=== PATIENT | female | born 1980 | race American Indian/Alaskan Native ===

== ENCOUNTER 2016-08-20 15:17 | Emergency (ER) | payer MEDICAID ==
--- NOTE | 2016-08-20 22:37 | Emergency Department Report ---
Entered by NETTIE HOYOS, acting as scribe for TONIE SHANE PA. - General Chief Complaint: Upper Respiratory Infection Stated Complaint: COUGH/HEADACHE/SOB/ASTHMA Time Seen by Provider: 08/20/16 19:48 Source: patient Mode of arrival: Ambulatory Limitations: No Limitations - History of Present Illness Initial Comments: 35 year old female with PMHx asthma presents to the ED for evaluation of productive cough for several weeks that worsened 3 days ago. Patient also reports chest tightness, wheezing, shortness of breath, sinus congestion, and headache. She reports mild relief of symptoms with albuterol nebulizer treatments x 2 today. Patient is currently taking steroids PO. She states she was seen by PCP after initial symptom onset; PCP prescribed albuterol nebulizer , steroids PO x 2 rounds, and changed albuterol pump. Patient sates she was not given steroids IM, antibiotics or had a chest x-ray performed. MD Complaint: cough (prodcutive), nasal congestion -: week(s) Consistency: constant Improves With: other (albuterol nebulizer, mildly) Context: other (Hx asthma) Associated Symptoms: headache, nasal congestion, cough, shortness of breath. denies: fever, chills, sore throat, chest pain, abdominal pain, nausea, vomiting , diarrhea, rash, ear pain Treatments Prior to Arrival: other (Albuterol pump. Albuterol nebulizer treatement x 2 today. Steroid PO x 2 rounds. ) - Related Data Home Medications Medication Instructions Recorded Confirmed Last Taken ALBUTEROL Inhaler [Proair] 2 puff IH QID PRN 04/15/16 04/15/16 04/14/16 14:00 ALBUTEROL NEB's [Proventil] 2.5 mg IH TID PRN 04/15/16 04/15/16 04/13/16 14:00 PARoxetine [Paxil] 10 mg PO DAILY 04/15/16 04/15/16 Unknown Previous Rx's Medication Instructions Recorded Last Taken Type Azithromycin [Zithromax Z-AXEL] 250 mg PO DAILY #6 tablet 08/20/16 Unknown Rx Brompheniramine/Pseudoephed/Dm 5 ml PO Q4-6H PRN #100 syrup 08/20/16 Unknown Rx [Bromfed Dm Cough Syrup] Fluticasone [Flonase] 1 spray NS QDAY PRN #1 bottle 08/20/16 Unknown Rx Loratadine 10 mg PO DAILY #30 tablet 08/20/16 Unknown Rx Allergies Allergy/AdvReac Type Severity Reaction Status Date / Time NSAIDS (Non-Steroidal AdvReac Swelling Verified 08/20/16 16:28 Anti-Inflamma ED Review of Systems Comment: All other systems reviewed and negative Constitutional: denies: chills, fever ENT: congestion. denies: ear pain, throat pain Respiratory: cough, shortness of breath, wheezing Cardiovascular: denies: chest pain Gastrointestinal: denies: abdominal pain, nausea, vomiting, diarrhea Skin: denies: rash Neurological: headache ED Past Medical Hx - Past Medical History Hx Headaches / Migraines: Yes Hx Psychiatric Treatment: Yes (ANXIETY) Hx Asthma: Yes - Surgical History Past Surgical History?: No - Social History Smoking Status: Never Smoker Substance Use Type: None - Medications Home Medications: Home Medications Medication Instructions Recorded Confirmed Last Taken Type ALBUTEROL Inhaler [Proair] 2 puff IH QID PRN 04/15/16 04/15/16 04/14/16 14:00 History ALBUTEROL NEB's [Proventil] 2.5 mg IH TID PRN 04/15/16 04/15/16 04/13/16 14:00 History PARoxetine [Paxil] 10 mg PO DAILY 04/15/16 04/15/16 Unknown History Azithromycin [Zithromax Z-AXEL] 250 mg PO DAILY #6 tablet 08/20/16 Unknown Rx Brompheniramine/Pseudoephed/Dm 5 ml PO Q4-6H PRN #100 syrup 08/20/16 Unknown Rx [Bromfed Dm Cough Syrup] Fluticasone [Flonase] 1 spray NS QDAY PRN #1 bottle 08/20/16 Unknown Rx Loratadine 10 mg PO DAILY #30 tablet 08/20/16 Unknown Rx ED Physical Exam - General Limitations: No Limitations General appearance: alert, in no apparent distress - Head Head exam: Present: atraumatic, normocephalic. Absent: other (sinus tenderness) - Eye Eye exam: Present: PERRL, EOMI - ENT ENT exam: Present: TM's normal bilaterally, other (Nares with bilateral mucousal membrane edema.) - Expanded ENT Exam Expanded Throat exam: Positive: other (clear post nasal drip). Negative: tonsillar erythema, tonsillomegaly, tonsillar exudate - Neck Neck exam: Present: normal inspection, lymphadenopathy (submandibular ) - Respiratory Respiratory exam: Present: normal lung sounds bilaterally. Absent: respiratory distress, wheezes, rales, rhonchi - Cardiovascular Cardiovascular Exam: Present: regular rate, normal rhythm, normal heart sounds. Absent: systolic murmur, diastolic murmur, rubs, gallop - Neurological Exam Neurological exam: Present: alert, oriented X3 - Psychiatric Psychiatric exam: Present: normal affect, normal mood - Skin Skin exam: Present: warm, dry, intact. Absent: rash ED Course Vital Signs 08/20/16 16:25 Temperature 98.3 F Pulse Rate 98 H Respiratory 19 Rate Blood Pressure 128/79 O2 Sat by Pulse 98 Oximetry - Reevaluation(s) Reevaluation #1: 08/20/16 22:36 Medicated with solu medrol IM ED Medical Decision Making - Radiology Data Radiology results: image reviewed interpreted by me: No infiltrates seen - Medical Decision Making Discussed results with patient; will send home with RX for loratadine and flonase for her allergies, bromfed dm for her nasal congestion and cough and azithromycin since her sxs have persisted for over 2 weeks; told her to drink plenty of fluids, tylenol for fevers or aches and follow up with PCP if sxs don' t improve, she verbalized understanding ED Disposition Clinical Impression: Acute bronchitis Qualifiers: Bronchitis organism: unspecified organism Qualified Code(s): J20.9 - Acute bronchitis, unspecified Asthma Qualifiers: Asthma severity: mild persistent Asthma complication type: uncomplicated Qualified Code(s): J45.30 - Mild persistent asthma, uncomplicated Disposition: DISCHARGED TO HOME OR SELFCARE Is pt being admited?: No Does the pt Need Aspirin: No Condition: Stable Instructions: Acute Bronchitis (ED), Asthma (ED) Prescriptions: Azithromycin [Zithromax Z-AXEL] 250 mg PO DAILY #6 tablet Brompheniramine/Pseudoephed/Dm [Bromfed Dm Cough Syrup] 5 ml PO Q4-6H PRN #100 syrup PRN Reason: Cough Fluticasone [Flonase] 1 spray NS QDAY PRN #1 bottle PRN Reason: Nasal Congestion Loratadine 10 mg PO DAILY #30 tablet Referrals: SHERMAN PADILLA, [employer] [Primary Care Provider] - 3-5 Days Forms: Work/School Release Form(ED) Time of Disposition: 22:28 Print Language: GUAMANIAN This documentation as recorded by the ROMAIN see REBEKAH,accurately reflects the service I personally performed and the decisions made by me,ACOSTA,ANDREY PENNY.
[2016-08-20 22:43] VITALS: BP 126/80
--- NOTE | 2016-08-21 07:30 | XRay Report ---
Chest 2 views: Compared to 04/15/16. History: Chest tightness. Findings: Normal cardiomediastinal silhouette. Trachea is midline. No consolidation, pneumothorax or pleural effusion. Impression: No acute cardiopulmonary findings.
== END 2016-08-20 22:42 | disposition home or self-care (01) ==
LOC: ED 15:17
DX: J20.9 Acute bronchitis, unspecified (principal); J45.30 Mild persistent asthma, uncomplicated; G43.909 Migraine, unspecified, not intractable, without status migrainosus
CPT/HCPCS: 71020; 96372; 99283; J2930

== ENCOUNTER 2016-09-05 05:14 | Emergency (ER) | payer MEDICAID ==
[2016-09-05 06:14] LABS: Urine Drugs of Abuse Note Disclamer
[2016-09-05 06:20] LABS: Bilirubin,Urine NEG (Negative); Blood,Urine MOD (Negative); Ketones,Urine NEG (Negative); Leukocyte Esterase,Urine NEG (Negative); Nitrite,Urine NEG (Negative); Protein,Urine <15 mg/dL mg/dL (Negative); Urobilinogen,Urine < 2.0 mg/dL (<2.0)
[2016-09-05 06:21] LABS: Basophils % (Auto) 0.6 % (0.0-1.8); Eosinophils % (Auto) 0.8 % (0.0-4.3); Hematocrit 38.6 % (30.3-42.9); Hemoglobin 12.6 gm/dl (10.1-14.3); Mean Corpuscular HGB Conc 33 % (30-34); Mean Corpuscular Hemoglobin 26 pg (28-32); Mean Corpuscular Volume 80 fl (79-97); Platelet Count 277 K/mm3 (140-440); Red Blood Count 4.82 M/mm3 (3.65-5.03); Red Cell Distribution Width 15.8 % (13.2-15.2); White Blood Count 6.6 K/mm3 (4.5-11.0)
--- NOTE | 2016-09-05 06:32 | Emergency Department Report ---
ED General Adult HPI - General Chief complaint: Psych Stated complaint: SUICIDAL Time Seen by Provider: 09/05/16 06:31 Source: patient Mode of arrival: Ambulatory Limitations: No Limitations - History of Present Illness Initial comments: This is a 35-year-old female. She presents to the ER after suicidal attempt. at /around 4:00 AM, ingested Risperdal, Benadryl, Advil," little blue pill for headache." Patient reports that she took 10 tablets of Advil, 20 tablets of Benadryl, cannot recall the numerical value of the Risperdal, and thinks that she took 12 tablets of the blue pill for headache. She does not know the name of the medication for blue pill for headache. She is feeling suicidal. Symptoms are constant. Experiencing, some auditory hallucinations. -: Gradual Severity scale (0 -10): 3 Consistency: constant Improves with: none Worsens with: none - Related Data Home Medications Medication Instructions Recorded Confirmed Last Taken ALBUTEROL Inhaler [Proair] 2 puff IH QID PRN 04/15/16 09/05/16 04/14/16 14:00 PARoxetine [Paxil] 40 mg PO DAILY 04/15/16 09/05/16 1 Day Ago Albuterol 0.63% NEBS 0.83 mg IH BID 09/05/16 09/05/16 Unknown Previous Rx's Medication Instructions Recorded Last Taken Type Loratadine 10 mg PO DAILY #30 tablet 08/20/16 Unknown Rx Allergies Allergy/AdvReac Type Severity Reaction Status Date / Time NSAIDS (Non-Steroidal AdvReac Swelling Verified 08/20/16 16:28 Anti-Inflamma ED Review of Systems ROS: Stated complaint: SUICIDAL Other details as noted in HPI Constitutional: malaise. denies: fever Eyes: denies: eye discharge ENT: denies: epistaxis Respiratory: denies: cough Cardiovascular: denies: chest pain Gastrointestinal: denies: vomiting Genitourinary: denies: dysuria Musculoskeletal: denies: back pain Skin: denies: lesions Neurological: headache Psychiatric: suicidal thoughts ED Past Medical Hx - Past Medical History Previous Medical History?: Yes Hx Headaches / Migraines: Yes Hx Psychiatric Treatment: Yes (ANXIETY) Hx Asthma: Yes - Surgical History Past Surgical History?: No - Social History Smoking Status: Never Smoker Substance Use Type: None - Medications Home Medications: Home Medications Medication Instructions Recorded Confirmed Last Taken Type ALBUTEROL Inhaler [Proair] 2 puff IH QID PRN 04/15/16 09/05/16 04/14/16 14:00 History PARoxetine [Paxil] 40 mg PO DAILY 04/15/16 09/05/16 1 Day Ago History Loratadine 10 mg PO DAILY #30 tablet 08/20/16 09/05/16 Unknown Rx Albuterol 0.63% NEBS 0.83 mg IH BID 09/05/16 09/05/16 Unknown History ED Physical Exam - General Limitations: No Limitations General appearance: alert, in no apparent distress - Head Head exam: Present: atraumatic, normocephalic - Eye Eye exam: Present: normal appearance, EOMI. Absent: nystagmus - ENT ENT exam: Present: normal exam, normal orophraynx, mucous membranes moist, normal external ear exam - Neck Neck exam: Present: normal inspection, full ROM. Absent: tenderness, meningismus - Respiratory Respiratory exam: Present: normal lung sounds bilaterally. Absent: respiratory distress, wheezes, rales, rhonchi, stridor, chest wall tenderness, accessory muscle use, decreased breath sounds, prolonged expiratory - Cardiovascular Cardiovascular Exam: Present: normal rhythm, tachycardia, normal heart sounds. Absent: systolic murmur, diastolic murmur, rubs, gallop - GI/Abdominal GI/Abdominal exam: Present: soft, normal bowel sounds. Absent: distended, tenderness, guarding, rebound, rigid, pulsatile mass - Extremities Exam Extremities exam: Present: normal inspection, full ROM, normal capillary refill. Absent: tenderness, pedal edema, joint swelling, calf tenderness - Back Exam Back exam: Present: normal inspection, full ROM. Absent: tenderness, CVA tenderness (R), CVA tenderness (L), muscle spasm, paraspinal tenderness, vertebral tenderness - Neurological Exam Neurological exam: Present: alert, oriented X3, other (Extraocular movements intact. Tongue midline. No facial droop. Facial sensation intact to light touch in the V1, V2, V3 distribution bilaterally. 5 and 5 strength in 4 extremities.. Sensation is intact to light touch in 4 extremities.). Absent: motor sensory deficit - Psychiatric Psychiatric exam: Present: anxious, suicidal ideation - Skin Skin exam: Present: warm, dry, intact, normal color. Absent: rash ED Course Vital Signs 09/05/16 09/05/16 09/05/16 05:42 07:44 08:35 Temperature 99 F 98.1 F Pulse Rate 125 H 125 H Respiratory 20 14 14 Rate Blood Pressure Blood Pressure 141/98 [Left] Blood Pressure 130/87 [Right] O2 Sat by Pulse 99 99 99 Oximetry 09/05/16 09/05/16 09/05/16 09:29 09:30 09:40 Temperature Pulse Rate 118 H 114 H 109 H Respiratory 13 12 11 L Rate Blood Pressure 129/80 129/80 Blood Pressure [Left] Blood Pressure [Right] O2 Sat by Pulse Oximetry 09/05/16 09/05/16 09/05/16 09:50 10:00 10:14 Temperature Pulse Rate 109 H 113 H Respiratory 17 17 18 Rate Blood Pressure 109/73 129/80 Blood Pressure [Left] Blood Pressure [Right] O2 Sat by Pulse 99 Oximetry 09/05/16 09/05/16 09/05/16 10:23 10:30 10:40 Temperature Pulse Rate 106 H 97 H 96 H Respiratory 12 14 Rate Blood Pressure 86/64 114/60 114/60 Blood Pressure [Left] Blood Pressure [Right] O2 Sat by Pulse Oximetry 09/05/16 09/05/16 09/05/16 10:50 11:00 11:10 Temperature Pulse Rate 95 H 97 H 94 H Respiratory 16 18 15 Rate Blood Pressure 109/73 114/66 114/66 Blood Pressure [Left] Blood Pressure [Right] O2 Sat by Pulse Oximetry 09/05/16 09/05/16 09/05/16 11:19 11:20 11:30 Temperature Pulse Rate 96 H 95 H 96 H Respiratory 14 13 16 Rate Blood Pressure 125/67 125/67 110/73 Blood Pressure [Left] Blood Pressure [Right] O2 Sat by Pulse Oximetry 09/05/16 09/05/16 09/05/16 11:31 11:40 11:50 Temperature Pulse Rate 95 H 95 H 109 H Respiratory 15 15 19 Rate Blood Pressure 110/73 110/73 110/73 Blood Pressure [Left] Blood Pressure [Right] O2 Sat by Pulse Oximetry 09/05/16 09/05/16 09/05/16 11:55 11:56 12:41 Temperature Pulse Rate 99 H 99 H Respiratory 15 18 17 Rate Blood Pressure 110/73 110/73 Blood Pressure [Left] Blood Pressure [Right] O2 Sat by Pulse 99 Oximetry 09/05/16 09/05/16 09/05/16 12:42 12:44 12:46 Temperature Pulse Rate 105 H 102 H 101 H Respiratory 18 14 15 Rate Blood Pressure 118/72 118/72 118/72 Blood Pressure [Left] Blood Pressure [Right] O2 Sat by Pulse 99 96 98 Oximetry 09/05/16 09/05/16 09/05/16 12:48 12:50 12:52 Temperature Pulse Rate 103 H 102 H 102 H Respiratory 16 14 17 Rate Blood Pressure 118/72 118/72 118/72 Blood Pressure [Left] Blood Pressure [Right] O2 Sat by Pulse 97 97 98 Oximetry 09/05/16 09/05/16 09/05/16 12:54 12:56 12:58 Temperature Pulse Rate 104 H 105 H 104 H Respiratory 17 18 22 Rate Blood Pressure 118/72 118/72 118/72 Blood Pressure [Left] Blood Pressure [Right] O2 Sat by Pulse 98 98 97 Oximetry 09/05/16 09/05/16 09/05/16 13:00 13:02 13:04 Temperature Pulse Rate 106 H 103 H 101 H Respiratory 18 15 16 Rate Blood Pressure 118/72 118/72 118/72 Blood Pressure [Left] Blood Pressure [Right] O2 Sat by Pulse 97 97 97 Oximetry 09/05/16 09/05/16 09/05/16 13:06 13:08 13:34 Temperature Pulse Rate 101 H 102 H 94 H Respiratory 17 17 11 L Rate Blood Pressure 118/72 118/72 109/63 Blood Pressure [Left] Blood Pressure [Right] O2 Sat by Pulse 97 98 100 Oximetry 09/05/16 09/05/16 09/05/16 13:36 13:38 13:40 Temperature Pulse Rate 95 H 91 H 94 H Respiratory 10 L 14 14 Rate Blood Pressure 109/63 109/63 109/63 Blood Pressure [Left] Blood Pressure [Right] O2 Sat by Pulse 98 100 99 Oximetry 09/05/16 09/05/16 09/05/16 13:42 13:44 13:46 Temperature Pulse Rate 94 H 95 H 94 H Respiratory 15 15 18 Rate Blood Pressure 109/63 109/63 109/63 Blood Pressure [Left] Blood Pressure [Right] O2 Sat by Pulse 100 99 99 Oximetry 04/0709/05/16 09/05/16 13:48 13:50 13:52 Temperature Pulse Rate 95 H 96 H 95 H Respiratory 16 20 12 Rate Blood Pressure 109/63 109/63 109/63 Blood Pressure [Left] Blood Pressure [Right] O2 Sat by Pulse 97 99 98 Oximetry 09/05/16 09/05/16 09/05/16 13:54 13:56 13:58 Temperature Pulse Rate 95 H 93 H 92 H Respiratory 16 17 16 Rate Blood Pressure 109/63 109/63 109/63 Blood Pressure [Left] Blood Pressure [Right] O2 Sat by Pulse 99 99 100 Oximetry 09/05/16 09/05/16 09/05/16 14:00 14:02 14:04 Temperature Pulse Rate 90 93 H 92 H Respiratory 15 17 18 Rate Blood Pressure 118/63 118/63 118/63 Blood Pressure [Left] Blood Pressure [Right] O2 Sat by Pulse 99 99 99 Oximetry 09/05/16 09/05/16 09/05/16 14:06 14:08 14:10 Temperature Pulse Rate 90 90 91 H Respiratory 13 16 16 Rate Blood Pressure 118/63 118/63 118/63 Blood Pressure [Left] Blood Pressure [Right] O2 Sat by Pulse 100 99 99 Oximetry 09/05/16 09/05/16 09/05/16 14:12 14:14 14:16 Temperature Pulse Rate 91 H 91 H 90 Respiratory 16 15 15 Rate Blood Pressure 118/63 118/63 118/63 Blood Pressure [Left] Blood Pressure [Right] O2 Sat by Pulse 99 99 99 Oximetry 09/05/16 09/05/16 09/05/16 14:18 14:20 14:22 Temperature Pulse Rate 88 92 H 90 Respiratory 15 15 16 Rate Blood Pressure 118/63 118/63 118/63 Blood Pressure [Left] Blood Pressure [Right] O2 Sat by Pulse 99 99 99 Oximetry 09/05/16 14:24 Temperature Pulse Rate 86 Respiratory 14 Rate Blood Pressure 118/63 Blood Pressure [Left] Blood Pressure [Right] O2 Sat by Pulse 99 Oximetry - Reevaluation(s) Reevaluation #1: 09/05/16 08:33 Differential diagnosis: Depression with psychosis, mood disorder, suicidal attempt, polypharmacy, intentional overdose Assessment and plan: 35-year-old male with suicide attempt from polypharmacy, patient presented to the ER more than 60 minutes after ingestion, therefore not a charcoal candidate. She is alert and oriented 3, with a GCS of 15, and an NIH score of 0. Laboratory studies reviewed, unremarkable, patient found to be tachycardic, IV fluids ordered. Serum toxicology studies have been ordered. The patient is placed on a 1013. The nurses going to contact the pharmacy at [facility] [address] and will attempt to reconcile the patient's medications. We will discuss with the [place] [facility] shortly. Reevaluation #2: 09/05/16 09:06 called up [facility] headache medication is fiorecet fiorecet 50 mg/325/40 (20 tabs) 09/05/16 09:26 Reevaluation #3: 09/05/16 11:52 tachycardia resolved . the case is discussed with Jimmy at the [place] [facility]. Recommended timeframe of 6-8 hours of observation. Of note, patient complained of headache.. Patient has a history of migraine headaches and frequent headaches. She has a GCS of 15, with an NIH score of 0. She reports that this headache is similar to her prior headache episodes. I highly doubt acute intracranial disease. However she did endorse some nonspecific hallucinations. Therefore we will obtain a CT scan of the head to exclude gross structural intracranial abnormalities. 09/05/16 11:52 Reevaluation #4: 09/05/16 14:12 CT scan of the brain is negative. As a point of clarification, the Poison Control Center initially recommended a 23 hour period of observation because of the unknown tablet. Now that the tablet has been classified as fiorecet, Poison Control Center amends the recommendation to 8 hours of observation. The patient has remained in the ER for a prolonged period of time, she has been observed for about 10 hours postingestion. At this point in time, I see no immediate medical contraindication to psychiatric admission/evaluation/placement. The crisis team is informed. ED Medical Decision Making - Lab Data Result diagrams: 09/05/16 06:06 09/05/16 06:06 Vital Signs 09/05/16 09/05/16 05:42 07:44 Temperature 99 F 98.1 F Pulse Rate 125 H 125 H Respiratory 20 14 Rate Blood Pressure 141/98 [Left] Blood Pressure 130/87 [Right] O2 Sat by Pulse 99 99 Oximetry Lab Results 09/05/16 09/05/1609/05/17 Range/Units 06:06 06:06 06:06 WBC 6.6 (4.5-11.0) K/mm3 RBC 4.82 (3.65-5.03) M/mm3 Hgb 12.6 (10.1-14.3) gm/dl Hct 38.6 (30.3-42.9) % MCV 80 (79-97) fl MCH 26 L (28-32) pg MCHC 33 (30-34) % RDW 15.8 H (13.2-15.2) % Plt Count 277 (140-440) K/mm3 Lymph % (Auto) 20.5 (13.4-35.0) % [place] % (Auto) 5.3 (0.0-7.3) % Eos % (Auto) 0.8 (0.0-4.3) % Baso % (Auto) 0.6 (0.0-1.8) % Lymph # 1.4 (1.2-5.4) K/mm3 [place] # 0.4 (0.0-0.8) K/mm3 Eos # 0.1 (0.0-0.4) K/mm3 Baso # 0.0 (0.0-0.1) K/mm3 Seg Neutrophils % 72.8 H (40.0-70.0) % Seg Neutrophils # 4.8 (1.8-7.7) K/mm3 Sodium 140 (137-145) mmol/L Potassium 3.4 L (3.6-5.0) mmol/L Chloride 99.9 (98-107) mmol/L Carbon Dioxide 24 (22-30) mmol/L Anion Gap 20 mmol/L BUN 7 (7-17) mg/dL Creatinine 0.5 L (0.7-1.2) mg/dL Estimated GFR > 60 ml/min BUN/Creatinine Ratio 14.00 % Glucose 102 H (65-100) mg/dL Calcium 9.1 (8.4-10.2) mg/dL Magnesium (1.7-2.3) mg/dL Urine Color (Yellow) Urine Turbidity (Clear) Urine pH (5.0-7.0) Ur Specific [place] (1.003-1.030) Urine Protein (Negative) mg/dL Urine Glucose (UA) (Negative) mg/dL Urine Ketones (Negative) mg/dL Urine Blood (Negative) Urine Nitrite (Negative) Urine Bilirubin (Negative) Urine Urobilinogen (<2.0) mg/dL Ur Leukocyte Esterase (Negative) Urine WBC (Auto) (0.0-6.0) /HPF Urine RBC (Auto) (0.0-6.0) /HPF U Epithel Cells (Auto) (0-13.0) /HPF Urine HCG, Qual (Negative) Salicylates (2.8-20.0) mg/dL Urine Opiates Screen Urine Methadone Screen Ur Phencyclidine Scrn Ur Amphetamines Screen U Benzodiazepines Scrn Urine Cocaine Screen U Marijuana (THC) Screen Plasma/Serum Alcohol < 0.01 (0-0.07) gm% 09/05/16 09/05/16 09/05/16 Range/Units 06:06 06:06 06:09 WBC (4.5-11.0) K/mm3 RBC (3.65-5.03) M/mm3 Hgb (10.1-14.3) gm/dl Hct (30.3-42.9) % MCV (79-97) fl MCH (28-32) pg MCHC (30-34) % RDW (13.2-15.2) % Plt Count (140-440) K/mm3 Lymph % (Auto) (13.4-35.0) % [place] % (Auto) (0.0-7.3) % Eos % (Auto) (0.0-4.3) % Baso % (Auto) (0.0-1.8) % Lymph # (1.2-5.4) K/mm3 [place] # (0.0-0.8) K/mm3 Eos # (0.0-0.4) K/mm3 Baso # (0.0-0.1) K/mm3 Seg Neutrophils % (40.0-70.0) % Seg Neutrophils # (1.8-7.7) K/mm3 Sodium (137-145) mmol/L Potassium (3.6-5.0) mmol/L Chloride (98-107) mmol/L Carbon Dioxide (22-30) mmol/L Anion Gap mmol/L BUN (7-17) mg/dL Creatinine (0.7-1.2) mg/dL Estimated GFR ml/min BUN/Creatinine Ratio % Glucose (65-100) mg/dL Calcium (8.4-10.2) mg/dL Magnesium 2.1 (1.7-2.3) mg/dL Urine Color Colorless (Yellow) Urine Turbidity Clear (Clear) Urine pH 7.0 (5.0-7.0) Ur Specific [place] 1.002 L (1.003-1.030) Urine Protein <15 mg/dl (Negative) mg/dL Urine Glucose (UA) Neg (Negative) mg/dL Urine Ketones Neg (Negative) mg/dL Urine Blood Mod (Negative) Urine Nitrite Neg (Negative) Urine Bilirubin Neg (Negative) Urine Urobilinogen < 2.0 (<2.0) mg/dL Ur Leukocyte Esterase Neg (Negative) Urine WBC (Auto) 0.0 (0.0-6.0) /HPF Urine RBC (Auto) 1.0 (0.0-6.0) /HPF U Epithel Cells (Auto) 1.0 (0-13.0) /HPF Urine HCG, Qual Negative (Negative) Salicylates < 0.3 L (2.8-20.0) mg/dL Urine Opiates Screen Urine Methadone Screen Ur Phencyclidine Scrn Ur Amphetamines Screen U Benzodiazepines Scrn Urine Cocaine Screen U Marijuana (THC) Screen Plasma/Serum Alcohol (0-0.07) gm% 09/05/16 Range/Units 06:09 WBC (4.5-11.0) K/mm3 RBC (3.65-5.03) M/mm3 Hgb (10.1-14.3) gm/dl Hct (30.3-42.9) % MCV (79-97) fl MCH (28-32) pg MCHC (30-34) % RDW (13.2-15.2) % Plt Count (140-440) K/mm3 Lymph % (Auto) (13.4-35.0) % [place] % (Auto) (0.0-7.3) % Eos % (Auto) (0.0-4.3) % Baso % (Auto) (0.0-1.8) % Lymph # (1.2-5.4) K/mm3 [place] # (0.0-0.8) K/mm3 Eos # (0.0-0.4) K/mm3 Baso # (0.0-0.1) K/mm3 Seg Neutrophils % (40.0-70.0) % Seg Neutrophils # (1.8-7.7) K/mm3 Sodium (137-145) mmol/L Potassium (3.6-5.0) mmol/L Chloride (98-107) mmol/L Carbon Dioxide (22-30) mmol/L Anion Gap mmol/L BUN (7-17) mg/dL Creatinine (0.7-1.2) mg/dL Estimated GFR ml/min BUN/Creatinine Ratio % Glucose (65-100) mg/dL Calcium (8.4-10.2) mg/dL Magnesium (1.7-2.3) mg/dL Urine Color (Yellow) Urine Turbidity (Clear) Urine pH (5.0-7.0) Ur Specific [place] (1.003-1.030) Urine Protein (Negative) mg/dL Urine Glucose (UA) (Negative) mg/dL Urine Ketones (Negative) mg/dL Urine Blood (Negative) Urine Nitrite (Negative) Urine Bilirubin (Negative) Urine Urobilinogen (<2.0) mg/dL Ur Leukocyte Esterase (Negative) Urine WBC (Auto) (0.0-6.0) /HPF Urine RBC (Auto) (0.0-6.0) /HPF U Epithel Cells (Auto) (0-13.0) /HPF Urine HCG, Qual (Negative) Salicylates (2.8-20.0) mg/dL Urine Opiates Screen Presumptive negative Urine Methadone Screen Presumptive negative Ur Phencyclidine Scrn Presumptive negative Ur Amphetamines Screen Presumptive negative U Benzodiazepines Scrn Presumptive negative Urine Cocaine Screen Presumptive negative U Marijuana (THC) Screen Presumptive negative Plasma/Serum Alcohol (0-0.07) gm% - EKG Data -: EKG Interpreted by Or EKG shows normal: sinus rhythm Rate: tachycardia - EKG Data 09/05/16 08:35 sinus tachycardia, 119 bpm, QTC 478 ms, QRS 66 ms, not morphologically consistent with STEMI, appears unchanged compared to prior EKG from April 2016. - Radiology Data Radiology results: report reviewed, image reviewed Noncontrast CT scan of the brain is negative Critical care attestation.: If time is entered above; I have spent that time in minutes in the direct care of this critically ill patient, excluding procedure time. ED Disposition Clinical Impression: Overdose, Mood disorder Disposition: DC/TX PSY HOSP/PSY UNIT Is pt being admited?: No Does the pt Need Aspirin: No Condition: Good Referrals: PRIMARY CARE, [Primary Care Provider] - 3-5 Days
[2016-09-05 06:36] LABS: Anion Gap 20 mmol/L; Blood Urea Nitrogen 7 mg/dL (7-17); Calcium 9.1 mg/dL (8.4-10.2); Carbon Dioxide 24 mmol/L (22-30); Chloride 99.9 mmol/L (98-107); Glucose 102 mg/dL (65-100); Potassium 3.4 mmol/L (3.6-5.0); Sodium 140 mmol/L (137-145)
[2016-09-05] MEDS ORDERED: ATIVAN IM PRN (06:44)
[2016-09-05] MEDS ORDERED: NACL 0.9% 1000 ML 2,000 ML IV ONE (06:44)
[2016-09-05 09:00] LABS: INR 1.02 (0.87-1.13)
[2016-09-05 09:21] LABS: Alanine Aminotransferase 27 units/L (7-56); Albumin 4.4 g/dL (3.9-5); Alkaline Phosphatase 57 units/L (35-129)
[2016-09-05] MEDS ORDERED: NACL 0.9% 1000 ML 2,000 ML ONE (09:59)
[2016-09-05] MEDS ORDERED: VISTARIL ONE (10:08)
[2016-09-05] MEDS ORDERED: VISTARIL PO ONE (10:41)
[2016-09-05 10:59] LABS: Albumin/Globulin Ratio 1.5 %; Bilirubin,Total 0.3 mg/dL (0.1-1.2); Total Protein 7.4 g/dL (6.3-8.2)
[2016-09-05 11:08] LABS: Bilirubin,Direct < 0.2 mg/dL (0-0.2)
--- NOTE | 2016-09-05 13:51 | Cat Scan Report ---
CT HEAD WITHOUT CONTRAST: HISTORY: Headache. Serial contiguous axial images were obtained through the cranium. Intravenous contrast material was not administered. The ventricles are normal in size and appearance. There is no mass effect or midline shift. No areas of abnormally increased or decreased attenuation are seen. No mass lesion is seen. The mastoid air cells and visualized portions of the sinuses are normal. IMPRESSION: Cranial CT scan within normal limits.
[2016-09-05 19:20] VITALS: BP 132/91
== END 2016-09-05 20:47 ==
LOC: EEVIPCON 05:14 → ED 05:14
DX: T39.312A Poisoning by propionic acid derivatives, intentional self-harm, initial encounter (principal); T45.0X2A Poisoning by antiallergic and antiemetic drugs, intentional self-harm, initial encounter; F39 Unspecified mood [affective] disorder; G43.909 Migraine, unspecified, not intractable, without status migrainosus; F41.9 Anxiety disorder, unspecified; J45.909 Unspecified asthma, uncomplicated; Z88.8 Allergy status to other drugs, medicaments and biological substances; Y92.89 Other specified places as the place of occurrence of the external cause
CPT/HCPCS: 36415; 70450; 80048; 80074; 80307; 81001; 81025; 83735; 84443; 85025; 85610; 93005; 93010; 96360; 96361; 99285; G0480; J2060; J7030; 80320; Q0177

== ENCOUNTER 2016-12-15 13:57 | Emergency (ER) | payer MEDICAID ==
--- NOTE | 2016-12-15 14:45 | Emergency Department Report ---
Chief Complaint: Pain General Stated Complaint: BODY PAIN Time Seen by Provider: 12/15/16 14:41 - HPI History of Present Illness: PT c/o headache, neck pain, chest and leg swelling x 3 days. PT states her asthma was acting up yesterday PT states she has been harassed and very stressed. - ROS Review of Systems: + chest pain + swelling + stress - Exam Physical Exam: PT is alert and appropriate in triage. steady gait no focal weakness MSE screening note: Focused history and physical exam performed. Due to findings the following was ordered: labs, xr, ekg ED Disposition for MSE Condition: Stable
[2016-12-15 14:46] VITALS: BP 122/83
[2016-12-15 15:37] LABS: Basophils % (Auto) 0.9 % (0.0-1.8); Eosinophils % (Auto) 0.6 % (0.0-4.3); Hemoglobin 12.8 gm/dl (10.1-14.3); Mean Corpuscular HGB Conc 32 % (30-34); Mean Corpuscular Volume 78 fl (79-97); Platelet Count 286 K/mm3 (140-440); Red Blood Count 5.14 M/mm3 (3.65-5.03); Red Cell Distribution Width 15.9 % (13.2-15.2); White Blood Count 5.7 K/mm3 (4.5-11.0)
[2016-12-15 15:42] LABS: Mean Corpuscular Hemoglobin 25 pg (28-32)
[2016-12-15 16:30] LABS: Alanine Aminotransferase 14 units/L (7-56); Albumin 4.6 g/dL (3.9-5); Albumin/Globulin Ratio 1.2 %; Alkaline Phosphatase 54 units/L (35-129); Anion Gap 20 mmol/L; Blood Urea Nitrogen 6 mg/dL (7-17); Calcium 9.7 mg/dL (8.4-10.2); Carbon Dioxide 21 mmol/L (22-30); Chloride 96.8 mmol/L (98-107); Glucose 99 mg/dL (65-100); Potassium 3.9 mmol/L (3.6-5.0); Sodium 134 mmol/L (137-145); Total Protein 8.5 g/dL (6.3-8.2)
--- NOTE | 2016-12-16 14:46 | ED Elopement Review ---
ED Pt Elopement review - Results review Lab results: Laboratory Tests 12/15/16 12/15/16 12/15/16 15:08 15:08 15:08 WBC 5.7 RBC 5.14 H Hgb 12.8 Hct 40.0 MCV 78 L MCH 25 L MCHC 32 RDW 15.9 H Plt Count 286 Lymph % (Auto) 27.7 Hale % (Auto) 8.2 H Eos % (Auto) 0.6 Baso % (Auto) 0.9 Lymph # 1.6 Hale # 0.5 Eos # 0.0 Baso # 0.0 Seg Neutrophils % 62.6 Seg Neutrophils # 3.5 Sodium 134 L Potassium 3.9 Chloride 96.8 L Carbon Dioxide 21 L Anion Gap 20 BUN 6 L Creatinine 0.5 L Estimated GFR > 60 BUN/Creatinine Ratio 12.00 Glucose 99 Calcium 9.7 Total Bilirubin 0.30 AST 19 ALT 14 Alkaline Phosphatase 54 Troponin T < 0.010 Total Protein 8.5 H Albumin 4.6 Albumin/Globulin Ratio 1.2 HCG, Qual Negative - Call Back decision Pt Call Back Decision: Pt to F/U with PMD
== END 2016-12-15 22:20 | disposition left against medical advice (07) ==
LOC: ED 13:57
DX: R51 Headache (principal); M54.2 Cervicalgia; Z53.21 Procedure and treatment not carried out due to patient leaving prior to being seen by health care provider
CPT/HCPCS: 36415; 80053; 84484; 84703; 85025; 93005; 93010

== ENCOUNTER 2017-02-07 11:34 | Emergency (ER) | payer MEDICAID ==
[2017-02-07 12:16] VITALS: BP 114/82
--- NOTE | 2017-02-07 19:33 | Emergency Department Report ---
Entered by JOSEFINA MURRELL, acting as scribe for ALEXIS SINGLETON NP. - General Chief complaint: Skin Rash Stated complaint: ALLERGIES/SKIN IRRITATION Time Seen by Provider: 02/07/17 14:44 Source: patient Mode of arrival: Ambulatory Limitations: No Limitations - History of Present Illness Initial comments: 36 y/o female with PMHx of allergies, tinea, and eczema, presents to the ED c/o rash to back and upper extremities x 2 weeks. Associated symptoms include itching, burning and nausea but denies fever, chills and vomiting. States she was living in a fdc and she recently moved to a new home. Patient is unsure if she is having an allergic reaction to dust or if something bit her. Symptoms are worse at night. Patient states she normally needs an allergy and steroid shot around this time of year due to allergies. She was seen 2 weeks ago by PCP and was diagnosed with tinea and strep throat but Bactrim did not help. Mild relief with Benadryl. No aggravating factors. Allergic to NSAIDS. MD complaint: rash Onset/Timin -: week(s) Location: back, LUE, RUE Quality: burning Consistency: intermittent Improves with: none Worsens with: none Context: other (patient was living in a fdc and recently moved to a new home ) Associated symptoms: nausea, other (itchign, burning, denies: vomiting) Treatments Prior to Arrival: none - Related Data Home Medications Medication Instructions Recorded Confirmed Last Taken ALBUTEROL Inhaler [Proair] 2 puff IH QID PRN 04/15/16 09/05/16 04/14/16 14:00 PARoxetine [Paxil] 40 mg PO DAILY 04/15/16 09/05/16 1 Day Ago Albuterol 0.63% NEBS 0.83 mg IH BID 09/05/16 09/05/16 Unknown Previous Rx's Medication Instructions Recorded Last Taken Type Loratadine 10 mg PO DAILY #30 tablet 08/20/16 Unknown Rx Permethrin 5% [Acticin 5% CREAM] 1 applicatio TP ONCE #1 tube 02/07/17 Unknown Rx Triamcinolone 0.1% [Kenalog 0.1% 1 applic TP TID 7 Days 02/07/17 Unknown Rx CREAM] hydrOXYzine PAMOATE [Vistaril] 25 mg PO Q6HR PRN #12 capsule 02/07/17 Unknown Rx Allergies Allergy/AdvReac Type Severity Reaction Status Date / Time NSAIDS (Non-Steroidal AdvReac Swelling Verified 12/15/16 14:40 Anti-Inflamma Abscess Boil HPI - HPI Chief Complaint: Skin Rash Stated Complaint: ALLERGIES/SKIN IRRITATION Time Seen by Provider: 02/07/17 14:07 Home Medications: Home Medications Medication Instructions Recorded Confirmed Last Taken ALBUTEROL Inhaler [Proair] 2 puff IH QID PRN 04/15/16 09/05/16 04/14/16 14:00 PARoxetine [Paxil] 40 mg PO DAILY 04/15/16 09/05/16 1 Day Ago Albuterol 0.63% NEBS 0.83 mg IH BID 09/05/16 09/05/16 Unknown Previous Rx's Medication Instructions Recorded Last Taken Type Loratadine 10 mg PO DAILY #30 tablet 08/20/16 Unknown Rx Permethrin 5% [Acticin 5% CREAM] 1 applicatio TP ONCE #1 tube 02/07/17 Unknown Rx Triamcinolone 0.1% [Kenalog 0.1% 1 applic TP TID 7 Days 02/07/17 Unknown Rx CREAM] hydrOXYzine PAMOATE [Vistaril] 25 mg PO Q6HR PRN #12 capsule 02/07/17 Unknown Rx Allergies/Adverse Reactions: Allergies Allergy/AdvReac Type Severity Reaction Status Date / Time NSAIDS (Non-Steroidal AdvReac Swelling Verified 12/15/16 14:40 Anti-Inflamma ED Review of Systems Comment: All other systems reviewed and negative Constitutional: denies: chills, fever Gastrointestinal: nausea. denies: vomiting Skin: rash, other (itching and burning) ED Past Medical Hx - Past Medical History Hx Headaches / Migraines: Yes Hx Psychiatric Treatment: Yes (ANXIETY) Hx Asthma: Yes Additional medical history: allergies - Surgical History Past Surgical History?: No - Social History Smoking Status: Never Smoker Substance Use Type: None - Medications Home Medications: Home Medications Medication Instructions Recorded Confirmed Last Taken Type ALBUTEROL Inhaler [Proair] 2 puff IH QID PRN 04/15/16 09/05/16 04/14/16 14:00 History PARoxetine [Paxil] 40 mg PO DAILY 04/15/16 09/05/16 1 Day Ago History Loratadine 10 mg PO DAILY #30 tablet 08/20/16 09/05/16 Unknown Rx Albuterol 0.63% NEBS 0.83 mg IH BID 09/05/16 09/05/16 Unknown History Permethrin 5% [Acticin 5% CREAM] 1 applicatio TP ONCE #1 tube 02/07/17 Unknown Rx Triamcinolone 0.1% [Kenalog 0.1% 1 applic TP TID 7 Days 02/07/17 Unknown Rx CREAM] hydrOXYzine PAMOATE [Vistaril] 25 mg PO Q6HR PRN #12 capsule 02/07/17 Unknown Rx ED Physical Exam - General Limitations: No Limitations General appearance: alert, in no apparent distress - Head Head exam: Present: atraumatic, normocephalic, normal inspection - Eye Eye exam: Present: normal appearance, PERRL, EOMI. Absent: scleral icterus, conjunctival injection, nystagmus, periorbital swelling, periorbital tenderness Pupils: Present: normal accommodation - ENT ENT exam: Present: normal exam, normal orophraynx, mucous membranes moist, TM's normal bilaterally, normal external ear exam - Neck Neck exam: Present: normal inspection, full ROM. Absent: tenderness, meningismus, lymphadenopathy, thyromegaly - Respiratory Respiratory exam: Present: normal lung sounds bilaterally. Absent: respiratory distress, wheezes, rales, rhonchi, stridor, chest wall tenderness, accessory muscle use, decreased breath sounds, prolonged expiratory - Cardiovascular Cardiovascular Exam: Present: regular rate, normal rhythm, normal heart sounds. Absent: bradycardia, tachycardia, irregular rhythm, systolic murmur, diastolic murmur, rubs, gallop - GI/Abdominal GI/Abdominal exam: Present: soft, normal bowel sounds. Absent: distended, tenderness, guarding, rebound, rigid, diminished bowel sounds - Extremities Exam Extremities exam: Present: normal inspection, full ROM, normal capillary refill. Absent: tenderness, pedal edema, joint swelling, calf tenderness - Back Exam Back exam: Present: normal inspection, full ROM. Absent: tenderness, CVA tenderness (R), CVA tenderness (L), muscle spasm, paraspinal tenderness, vertebral tenderness, rash noted - Neurological Exam Neurological exam: Present: alert, oriented X3 - Psychiatric Psychiatric exam: Present: normal affect, normal mood - Skin Skin exam: Present: warm, dry, rash (hyperpigmented, scally rash to anterior neck ) ED Course Vital Signs 02/07/17 12:12 Temperature 98.2 F Pulse Rate 96 H Respiratory 18 Rate Blood Pressure 114/82 O2 Sat by Pulse 100 Oximetry - Reevaluation(s) Reevaluation #1: 02/07/17 15:27 PT given steroid shot for her itching. PT states this usually helps. PT states she is currently not being treated for eczema. PT offered treatment for scabies due to pt recently being in fdc and having itching and rash. PT refusing treatment and requesting treatment of eczema - Pulse Oximetry Interpretation Digit-Finger Initial Pulse Oximetry Readin Actions Taken: none ED Medical Decision Making - Differential Diagnosis allergic reaction, scabies Critical Care Time: No ED Disposition Clinical Impression: Itching, Rash and nonspecific skin eruption Disposition: TO HOME OR SELFCARE Is pt being admited?: No Does the pt Need Aspirin: No Condition: Stable Instructions: Contact Dermatitis (ED), Scabies (ED), Acute Rash (ED) Additional Instructions: No driving or alcohol after taking Vistaril Do not take Benadryl with Vistaril Follow up with PCP in 3-5 days Prescriptions: hydrOXYzine PAMOATE [Vistaril] 25 mg PO Q6HR PRN #12 capsule PRN Reason: Itching Permethrin 5% [Acticin 5% CREAM] 1 applicatio TP ONCE #1 tube Triamcinolone 0.1% [Kenalog 0.1% CREAM] 1 applic TP TID 7 Days Referrals: PRIMARY CAREMD [Primary Care Provider] - 3-5 Days SOLO RESENDEZ MD [Staff Physician] - 3-5 Days [facility] [Outside] - 3-5 Days Time of Disposition: 15:30 This documentation as recorded by the HANDY see ELIZABETH,accurately reflects the service I personally performed and the decisions made by ,ALEXIS SINGLETON, YOUTH CARE SPECIALIST.
== END 2017-02-07 15:30 | disposition home or self-care (01) ==
LOC: ED 11:34
DX: R21 Rash and other nonspecific skin eruption (principal); L29.8 Other pruritus; J45.909 Unspecified asthma, uncomplicated; F41.9 Anxiety disorder, unspecified; Z88.8 Allergy status to other drugs, medicaments and biological substances
CPT/HCPCS: 96372; 99282; J2930

== ENCOUNTER 2017-03-15 11:38 | Emergency (ER) | payer MEDICAID ==
--- NOTE | 2017-03-15 12:37 | Emergency Department Report ---
- General Chief complaint: Animal Bite Stated complaint: INSECT BITE Time Seen by Provider: 03/15/17 12:13 Source: patient Mode of arrival: Ambulatory Limitations: No Limitations - History of Present Illness Initial comments: 36-year-old female past medical history migraines presents with complaint of possible insect bite to left upper anterior thigh region. Patient states she felt a stinging sensation while at work. Patient noticed a small red patch on the left upper anterior thigh just progressively gotten more red and swollen over the last 3 days. Patient denies fevers or chills denies any other areas on skin with discoloration or erythema. Patient is awake alert and oriented 3 MD complaint: abscess/boil, discoloration (ertyhema left upper thigh) Location: LLE (left upper thigh abscess/cellulitis) Severity: moderate Severity scale (0 -10): 6 Quality: burning, aching Consistency: intermittent Associated symptoms: denies other symptoms - Related Data Home Medications Medication Instructions Recorded Confirmed Last Taken ALBUTEROL Inhaler [Proair] 2 puff IH QID PRN 04/15/16 09/05/16 04/14/16 14:00 PARoxetine [Paxil] 40 mg PO DAILY 04/15/16 09/05/16 1 Day Ago Albuterol 0.63% NEBS 0.83 mg IH BID 09/05/16 09/05/16 Unknown Previous Rx's Medication Instructions Recorded Last Taken Type Loratadine 10 mg PO DAILY #30 tablet 08/20/16 Unknown Rx Permethrin 5% [Acticin 5% CREAM] 1 applicatio TP ONCE #1 tube 02/07/17 Unknown Rx Triamcinolone 0.1% [Kenalog 0.1% 1 applic TP TID 7 Days 02/07/17 Unknown Rx CREAM] hydrOXYzine PAMOATE [Vistaril] 25 mg PO Q6HR PRN #12 capsule 02/07/17 Unknown Rx Acetaminophen [Acetaminophen TAB] 500 mg PO Q6HR PRN #30 tablet 03/15/17 Unknown Rx Cephalexin [Keflex] 500 mg PO BID #14 capsule 03/15/17 Unknown Rx Sulfamethoxazole/Trimethoprim 1 each PO BID #14 tablet 03/15/17 Unknown Rx [Bactrim DS TAB] Allergies Allergy/AdvReac Type Severity Reaction Status Date / Time NSAIDS (Non-Steroidal AdvReac Swelling Verified 12/15/16 14:40 Anti-Inflamma Abscess Boil HPI - HPI Chief Complaint: Animal Bite Stated Complaint: INSECT BITE Time Seen by Provider: 03/15/17 12:13 Home Medications: Home Medications Medication Instructions Recorded Confirmed Last Taken ALBUTEROL Inhaler [Proair] 2 puff IH QID PRN 04/15/16 09/05/16 04/14/16 14:00 PARoxetine [Paxil] 40 mg PO DAILY 04/15/16 09/05/16 1 Day Ago Albuterol 0.63% NEBS 0.83 mg IH BID 09/05/16 09/05/16 Unknown Previous Rx's Medication Instructions Recorded Last Taken Type Loratadine 10 mg PO DAILY #30 tablet 08/20/16 Unknown Rx Permethrin 5% [Acticin 5% CREAM] 1 applicatio TP ONCE #1 tube 02/07/17 Unknown Rx Triamcinolone 0.1% [Kenalog 0.1% 1 applic TP TID 7 Days 02/07/17 Unknown Rx CREAM] hydrOXYzine PAMOATE [Vistaril] 25 mg PO Q6HR PRN #12 capsule 02/07/17 Unknown Rx Acetaminophen [Acetaminophen TAB] 500 mg PO Q6HR PRN #30 tablet 03/15/17 Unknown Rx Cephalexin [Keflex] 500 mg PO BID #14 capsule 03/15/17 Unknown Rx Sulfamethoxazole/Trimethoprim 1 each PO BID #14 tablet 03/15/17 Unknown Rx [Bactrim DS TAB] Allergies/Adverse Reactions: Allergies Allergy/AdvReac Type Severity Reaction Status Date / Time NSAIDS (Non-Steroidal AdvReac Swelling Verified 12/15/16 14:40 Anti-Inflamma ED Review of Systems ROS: Stated complaint: INSECT BITE Other details as noted in HPI Constitutional: denies: chills, fever Eyes: denies: eye pain, eye discharge, vision change ENT: denies: ear pain, throat pain Respiratory: denies: cough, shortness of breath, wheezing Cardiovascular: denies: chest pain, palpitations Endocrine: no symptoms reported Gastrointestinal: denies: abdominal pain, nausea, diarrhea Genitourinary: denies: urgency, dysuria, discharge Musculoskeletal: denies: back pain, joint swelling, arthralgia Skin: denies: rash, lesions Neurological: denies: headache, weakness, paresthesias Psychiatric: denies: anxiety, depression Hematological/Lymphatic: denies: easy bleeding, easy bruising ED Past Medical Hx - Past Medical History Hx Headaches / Migraines: Yes Hx Psychiatric Treatment: Yes (ANXIETY) Hx Asthma: Yes Additional medical history: allergies - Surgical History Past Surgical History?: No - Social History Smoking Status: Never Smoker Substance Use Type: None - Medications Home Medications: Home Medications Medication Instructions Recorded Confirmed Last Taken Type ALBUTEROL Inhaler [Proair] 2 puff IH QID PRN 04/15/16 09/05/16 04/14/16 14:00 History PARoxetine [Paxil] 40 mg PO DAILY 04/15/16 09/05/16 1 Day Ago History Loratadine 10 mg PO DAILY #30 tablet 08/20/16 09/05/16 Unknown Rx Albuterol 0.63% NEBS 0.83 mg IH BID 09/05/16 09/05/16 Unknown History Permethrin 5% [Acticin 5% CREAM] 1 applicatio TP ONCE #1 tube 02/07/17 Unknown Rx Triamcinolone 0.1% [Kenalog 0.1% 1 applic TP TID 7 Days 02/07/17 Unknown Rx CREAM] hydrOXYzine PAMOATE [Vistaril] 25 mg PO Q6HR PRN #12 capsule 02/07/17 Unknown Rx Acetaminophen [Acetaminophen TAB] 500 mg PO Q6HR PRN #30 tablet 03/15/17 Unknown Rx Cephalexin [Keflex] 500 mg PO BID #14 capsule 03/15/17 Unknown Rx Sulfamethoxazole/Trimethoprim 1 each PO BID #14 tablet 03/15/17 Unknown Rx [Bactrim DS TAB] ED Physical Exam - General Limitations: No Limitations General appearance: alert, in no apparent distress - Head Head exam: Present: atraumatic, normocephalic - Eye Eye exam: Present: normal appearance, PERRL, EOMI - ENT ENT exam: Present: mucous membranes moist - Neck Neck exam: Present: normal inspection - Respiratory Respiratory exam: Present: normal lung sounds bilaterally. Absent: respiratory distress - Cardiovascular Cardiovascular Exam: Present: regular rate, normal rhythm. Absent: systolic murmur, diastolic murmur, rubs, gallop - GI/Abdominal GI/Abdominal exam: Present: soft, normal bowel sounds - Extremities Exam Extremities exam: Present: normal inspection - Expanded Lower Extremity Exam Left Hip exam: Present: normal inspection, full ROM Upper Leg exam: Present: tenderness, erythema (circular area of erythema abou 16 cm left anteriro thigh region) Knee exam: Present: normal inspection, full ROM Lower Leg exam: Present: normal inspection, full ROM Ankle exam: Present: normal inspection, full ROM Foot/Toe exam: Present: normal inspection, full ROM Neuro vascular tendon exam: Present: no vascular compromise (distal pulses kelsey to palpation) 1 - area of cellulitis and abscess here - Back Exam Back exam: Present: normal inspection - Neurological Exam Neurological exam: Present: alert, oriented X3, CN II-XII intact, normal gait - Psychiatric Psychiatric exam: Present: normal affect, normal mood - Skin Skin exam: Present: warm, dry, intact, normal color. Absent: rash ED Course Vital Signs 03/15/17 03/15/17 03/15/17 11:42 13:16 13:18 Temperature 98 F 98.2 F Pulse Rate 56 L 79 Respiratory 18 16 Rate Blood Pressure 116/68 105/68 O2 Sat by Pulse 100 100 Oximetry - I & D Left Upper Anterior Proximal Thigh Type of Procedure: Simple Site: left upper anteriro thigh Blade Size: 11 I & D Procedure: betadine prep, sterile drapes applied Progress: area infliltrated with lidocaine w/ epi about 4 ccs, good local anesthesia achieved. small 1-2cm stab incision made. tiny amount of purulent drainage. no packing placed, borders marked. covered with gauze afterward ED Medical Decision Making - Medical Decision Making A/P: Left anterior thigh abscess/cellulitis 1-abscess incised and drained, wound culture sent 2-course of Bactrim and Keflex twice a day 7 days 3-Tylenol when necessary as patient is allergic to NSAIDs 4- Critical care attestation.: If time is entered above; I have spent that time in minutes in the direct care of this critically ill patient, excluding procedure time. ED Disposition Clinical Impression: Cellulitis of left thigh, Abscess of left thigh Disposition: - TO HOME OR SELFCARE Is pt being admited?: No Does the pt Need Aspirin: No Condition: Stable Instructions: Cellulitis (ED), Abscess Incision and Drainage (ED), Abscess (ED) Prescriptions: Acetaminophen [Acetaminophen TAB] 500 mg PO Q6HR PRN #30 tablet PRN Reason: Pain Cephalexin [Keflex] 500 mg PO BID #14 capsule Sulfamethoxazole/Trimethoprim [Bactrim DS TAB] 1 each PO BID #14 tablet Referrals: [facility] [Outside] - 3-5 Days Forms: Work/School Release Form(ED) Time of Disposition: 12:37
[2017-03-15] MEDS ORDERED: TYLENOL PO ONE (12:41)
[2017-03-15 13:18] VITALS: BP 105/68
== END 2017-03-15 13:19 | disposition home or self-care (01) ==
LOC: ED 11:38
DX: L02.416 Cutaneous abscess of left lower limb (principal); L03.116 Cellulitis of left lower limb; G43.909 Migraine, unspecified, not intractable, without status migrainosus; Z88.8 Allergy status to other drugs, medicaments and biological substances
CPT/HCPCS: 87076; 87116; 87186; 99282

== ENCOUNTER 2017-08-25 11:34 | Emergency (ER) | payer MEDICAID ==
[2017-08-25 12:13] VITALS: BP 126/85
[2017-08-25] MEDS ORDERED: ATIVAN PO ONE (14:50)
[2017-08-25] MEDS ORDERED: NORCO 7.5/325 PO ONE (14:50)
--- NOTE | 2017-08-25 15:38 | Emergency Department Report ---
- General Chief complaint: Skin/Abscess/Foreign Body Stated complaint: BOIL Time Seen by Provider: 08/25/17 13:25 Source: patient Mode of arrival: Ambulatory Limitations: No Limitations - History of Present Illness Initial comments: 36-year-old -[place] female comes in complaining of abscess to her pelvic area with drainage. States that it feels hard to touch 2 days. She has been doing warm salt baths which has helped some. Patient reports that she often has to get waxed versus shaving due to ingrown hairs. Patient denies any fever or chills or nausea no vomiting. She reports past medical history of boils. MD complaint: abscess/boil -: days(s) (2) Tetanus Up to Date: yes Location: genitals Severity scale (0 -10): 7 Consistency: constant Improves with: other (warm hot baths) Worsens with: palpation, other (walking) Context: none Associated symptoms: denies other symptoms - Related Data Home Medications Medication Instructions Recorded Confirmed Last Taken ALBUTEROL Inhaler [Proair] 2 puff IH QID PRN 04/15/16 09/05/16 04/14/16 14:00 PARoxetine [Paxil] 40 mg PO DAILY 04/15/16 09/05/16 1 Day Ago ~09/04/16 Albuterol 0.63% NEBS 0.83 mg IH BID 09/05/16 09/05/16 Unknown Previous Rx's Medication Instructions Recorded Last Taken Type Loratadine 10 mg PO DAILY #30 tablet 08/20/16 Unknown Rx Permethrin 5% [Acticin 5% CREAM] 1 applicatio TP ONCE #1 tube 02/07/17 Unknown Rx Triamcinolone 0.1% [Kenalog 0.1% 1 applic TP TID 7 Days tube 02/07/17 Unknown Rx CREAM] hydrOXYzine PAMOATE [Vistaril] 25 mg PO Q6HR PRN #12 capsule 02/07/17 Unknown Rx Acetaminophen [Acetaminophen TAB] 500 mg PO Q6HR PRN #30 tablet 03/15/17 Unknown Rx Cephalexin [Keflex] 500 mg PO BID #14 capsule 03/15/17 Unknown Rx Sulfamethoxazole/Trimethoprim 1 each PO BID #14 tablet 03/15/17 Unknown Rx [Bactrim DS TAB] Acetaminophen/Codeine [Tylenol 1 tab PO Q6H PRN #20 tab 08/25/17 Unknown Rx /Codeine # 3 tab] Sulfamethoxazole/Trimethoprim 1 each PO BID 10 Days #20 tablet 08/25/17 Unknown Rx [Bactrim Ds Tablet] Allergies Allergy/AdvReac Type Severity Reaction Status Date / Time NSAIDS (Non-Steroidal AdvReac Swelling Verified 12/15/16 14:40 Anti-Inflamma Abscess Boil HPI - HPI Chief Complaint: Skin/Abscess/Foreign Body Stated Complaint: BOIL Time Seen by Provider: 08/25/17 13:25 Home Medications: Home Medications Medication Instructions Recorded Confirmed Last Taken ALBUTEROL Inhaler [Proair] 2 puff IH QID PRN 04/15/16 09/05/16 04/14/16 14:00 PARoxetine [Paxil] 40 mg PO DAILY 04/15/16 09/05/16 1 Day Ago ~09/04/16 Albuterol 0.63% NEBS 0.83 mg IH BID 09/05/16 09/05/16 Unknown Previous Rx's Medication Instructions Recorded Last Taken Type Loratadine 10 mg PO DAILY #30 tablet 08/20/16 Unknown Rx Permethrin 5% [Acticin 5% CREAM] 1 applicatio TP ONCE #1 tube 02/07/17 Unknown Rx Triamcinolone 0.1% [Kenalog 0.1% 1 applic TP TID 7 Days tube 02/07/17 Unknown Rx CREAM] hydrOXYzine PAMOATE [Vistaril] 25 mg PO Q6HR PRN #12 capsule 02/07/17 Unknown Rx Acetaminophen [Acetaminophen TAB] 500 mg PO Q6HR PRN #30 tablet 03/15/17 Unknown Rx Cephalexin [Keflex] 500 mg PO BID #14 capsule 03/15/17 Unknown Rx Sulfamethoxazole/Trimethoprim 1 each PO BID #14 tablet 03/15/17 Unknown Rx [Bactrim DS TAB] Acetaminophen/Codeine [Tylenol 1 tab PO Q6H PRN #20 tab 08/25/17 Unknown Rx /Codeine # 3 tab] Sulfamethoxazole/Trimethoprim 1 each PO BID 10 Days #20 tablet 08/25/17 Unknown Rx [Bactrim Ds Tablet] Allergies/Adverse Reactions: Allergies Allergy/AdvReac Type Severity Reaction Status Date / Time NSAIDS (Non-Steroidal AdvReac Swelling Verified 12/15/16 14:40 Anti-Inflamma ED Review of Systems ROS: Stated complaint: BOIL Other details as noted in HPI Constitutional: denies: chills, fever Eyes: denies: eye pain, eye discharge, vision change ENT: denies: ear pain, throat pain Respiratory: denies: cough, shortness of breath, wheezing Cardiovascular: denies: chest pain, palpitations Endocrine: no symptoms reported Gastrointestinal: denies: abdominal pain, nausea, diarrhea Genitourinary: denies: urgency, dysuria, discharge Musculoskeletal: denies: back pain, joint swelling, arthralgia Skin: lesions (left genital labia). denies: rash Neurological: denies: headache, weakness, paresthesias Psychiatric: denies: anxiety, depression Hematological/Lymphatic: denies: easy bleeding, easy bruising ED Past Medical Hx - Past Medical History Hx Headaches / Migraines: Yes Hx Psychiatric Treatment: Yes (ANXIETY) Hx Asthma: Yes Additional medical history: allergies - Surgical History Past Surgical History?: No - Social History Smoking Status: Never Smoker Substance Use Type: None - Medications Home Medications: Home Medications Medication Instructions Recorded Confirmed Last Taken Type ALBUTEROL Inhaler [Proair] 2 puff IH QID PRN 04/15/16 09/05/16 04/14/16 14:00 History PARoxetine [Paxil] 40 mg PO DAILY 04/15/16 09/05/16 1 Day Ago History ~09/04/16 Loratadine 10 mg PO DAILY #30 tablet 08/20/16 09/05/16 Unknown Rx Albuterol 0.63% NEBS 0.83 mg IH BID 09/05/16 09/05/16 Unknown History Permethrin 5% [Acticin 5% CREAM] 1 applicatio TP ONCE #1 tube 02/07/17 Unknown Rx Triamcinolone 0.1% [Kenalog 0.1% 1 applic TP TID 7 Days tube 02/07/17 Unknown Rx CREAM] hydrOXYzine PAMOATE [Vistaril] 25 mg PO Q6HR PRN #12 capsule 02/07/17 Unknown Rx Acetaminophen [Acetaminophen TAB] 500 mg PO Q6HR PRN #30 tablet 03/15/17 Unknown Rx Cephalexin [Keflex] 500 mg PO BID #14 capsule 03/15/17 Unknown Rx Sulfamethoxazole/Trimethoprim 1 each PO BID #14 tablet 03/15/17 Unknown Rx [Bactrim DS TAB] Acetaminophen/Codeine [Tylenol 1 tab PO Q6H PRN #20 tab 08/25/17 Unknown Rx /Codeine # 3 tab] Sulfamethoxazole/Trimethoprim 1 each PO BID 10 Days #20 tablet 08/25/17 Unknown Rx [Bactrim Ds Tablet] ED Physical Exam - General Limitations: No Limitations General appearance: alert, in no apparent distress - Head Head exam: Present: atraumatic, normocephalic - Eye Eye exam: Present: normal appearance - ENT ENT exam: Present: mucous membranes moist - Neck Neck exam: Present: normal inspection - Respiratory Respiratory exam: Present: normal lung sounds bilaterally. Absent: respiratory distress - Cardiovascular Cardiovascular Exam: Present: regular rate, normal rhythm. Absent: systolic murmur, diastolic murmur, rubs, gallop - GI/Abdominal GI/Abdominal exam: Present: soft, normal bowel sounds - Extremities Exam Extremities exam: Present: normal inspection - Back Exam Back exam: Present: normal inspection - Neurological Exam Neurological exam: Present: alert, oriented X3 - Psychiatric Psychiatric exam: Present: normal affect, normal mood - Skin Skin exam: Present: warm, dry, intact, normal color, other (left genital labia swelling and tenderness erythematous fluctuant). Absent: rash ED Course Vital Signs 08/25/17 08/25/17 12:11 14:57 Temperature 98.7 F Pulse Rate 86 Respiratory 16 16 Rate Blood Pressure 126/85 O2 Sat by Pulse 100 Oximetry - I & D Left Vagina Blade Size: 11 I & D Procedure: betadine prep, sterile drapes applied, sterile dressing applied , gauze wick placed (Neely catheter placed) Progress: Patient tolerated procedure very well ED Medical Decision Making - Medical Decision Making Patient's been evaluated by this provider fast track. Discussed with patient that we will need to incision and drained the abscess as well as place a Word catheter. Discussed the patient she needs to complete antibiotics as prescribed. Discussed the patient she is to follow-up with her primary CHILD STUDY TEAM DIRECTOR doctor next 3-5 days. Patient verbalized understanding. Critical care attestation.: If time is entered above; I have spent that time in minutes in the direct care of this critically ill patient, excluding procedure time. ED Disposition Clinical Impression: Bartholin's gland abscess Disposition: TO HOME OR SELFCARE Is pt being admited?: No Does the pt Need Aspirin: No Condition: Stable Instructions: Bartholin Cyst (ED), Incision and Drainage (ED) Additional Instructions: Complete antibiotics as prescribed. Please follow-up which her primary CHILD STUDY TEAM DIRECTOR provider within 3-5 days. Prescriptions: Acetaminophen/Codeine [Tylenol /Codeine # 3 tab] 1 tab PO Q6H PRN #20 tab PRN Reason: Pain Sulfamethoxazole/Trimethoprim [Bactrim Ds Tablet] 1 each PO BID 10 Days #20 tablet Referrals: PRIMARY CARE, [Primary Care Provider] - 3-5 Days Forms: Work/School Release Form(ED)
== END 2017-08-25 15:56 | disposition home or self-care (01) ==
LOC: ED 11:34
DX: N75.1 Abscess of Bartholin's gland (principal); G43.909 Migraine, unspecified, not intractable, without status migrainosus; F41.9 Anxiety disorder, unspecified; J45.909 Unspecified asthma, uncomplicated; Z88.6 Allergy status to analgesic agent

== ENCOUNTER 2018-09-24 07:43 | Emergency (ER) | payer MEDICAID ==
[2018-09-24 08:01] VITALS: BP 119/85
--- NOTE | 2018-09-24 09:38 | Emergency Department Report ---
Minor Respiratory - HPI Chief Complaint: Upper Respiratory Infection Stated Complaint: HEAD/ALLERGIES/HIVES/PAIN Duration: 1 week Pain Location: Nose Severity: moderate Minor Respiratory: Yes Rhinorrhea, Yes Sore Throat, Yes Able to Tolerate Fluids, No Ear Pain, No Cough, No Sick Contacts, No Hemoptysis, No Chest Pain, No Shortness of Breath, No Fever Other History: This is a 37-year-old -[place] female presents with congestion and sore throat for 4 weeks patient states symptoms have increased over the pain suite. She is seeing her primary care provider who prescribed prednisone and loratadine with minimal improvement of symptoms. She states she usually take allergy shots for PCP refused referral to risk professional. He denies cough, fever, chest pain, or shortness of breath. ED Review of Systems ROS: Stated complaint: HEAD/ALLERGIES/HIVES/PAIN Other details as noted in HPI Constitutional: denies: chills, fever ENT: throat pain, congestion. denies: ear pain Respiratory: denies: cough, shortness of breath, wheezing Cardiovascular: denies: chest pain, palpitations Gastrointestinal: denies: abdominal pain, nausea, diarrhea Skin: denies: rash, lesions Neurological: denies: headache, weakness, paresthesias Psychiatric: denies: anxiety, depression ED Past Medical Hx - Past Medical History Hx Headaches / Migraines: Yes Hx Psychiatric Treatment: Yes (ANXIETY) Hx Asthma: Yes Additional medical history: allergies - Social History Smoking Status: Never Smoker Substance Use Type: Alcohol - Medications Home Medications: Home Medications Medication Instructions Recorded Confirmed Last Taken Type ALBUTEROL Inhaler (OR & NICU) 2 puff IH QID PRN 04/15/16 09/05/16 04/14/16 14:00 History [Proair] PARoxetine [Paxil] 40 mg PO DAILY 04/15/16 09/05/16 1 Day Ago History ~09/04/16 Loratadine 10 mg PO DAILY #30 tablet 08/20/16 09/05/16 Unknown Rx Albuterol 0.63% NEBS 0.83 mg IH BID 09/05/16 09/05/16 Unknown History Permethrin 5% [Acticin 5% CREAM] 1 applicatio TP ONCE #1 tube 02/07/17 Unknown Rx Triamcinolone 0.1% [Kenalog 0.1% 1 applic TP TID 7 Days tube 02/07/17 Unknown Rx CREAM] hydrOXYzine PAMOATE [Vistaril] 25 mg PO Q6HR PRN #12 capsule 02/07/17 Unknown Rx Acetaminophen [Acetaminophen TAB] 500 mg PO Q6HR PRN #30 tablet 03/15/17 Unknown Rx Cephalexin [Keflex] 500 mg PO BID #14 capsule 03/15/17 Unknown Rx Sulfamethoxazole/Trimethoprim 1 each PO BID #14 tablet 03/15/17 Unknown Rx [Bactrim DS TAB] Acetaminophen/Codeine [Tylenol 1 tab PO Q6H PRN #20 tab 08/25/17 Unknown Rx /Codeine # 3 tab] Sulfamethoxazole/Trimethoprim 1 each PO BID 10 Days #20 tablet 08/25/17 Unknown Rx [Bactrim Ds Tablet] Amoxicillin/Potassium Clav 1 each PO BID #20 tablet 03/24/18 Unknown Rx [Augmentin 875-125 Tablet] Fluticasone [Flonase] 1 spray NS QDAY #1 bottle 03/24/18 Unknown Rx HYDROcodone/APAP 5-325 [[place] 1 each PO Q4HR PRN #12 tablet 03/24/18 Unknown Rx 5/325] predniSONE [Deltasone] 20 mg PO QDAY #5 tab 03/24/18 Unknown Rx Fluticasone [Flonase] 1 spray NS QDAY #1 bottle 09/24/18 Unknown Rx Montelukast [Singulair] 10 mg PO QPM #30 tablet 09/24/18 Unknown Rx Minor Respiratory Exam - Exam General: Vital signs noted. No distress. Alert and acting appropriately. HEENT: Yes Pharyngeal Erythema (erythematous posterior pharynx, uvula midline without exudate), Yes Moist Mucous Membranes, Yes Rhinorrhea (turbinates mildly congested with clear discharge), No Pharyngeal Exudates, No Conjuctival Injection, No Frontal Tenderness, No Maxillary Tenderness Ear: Neither TM Bulge, Neither TM Erythema, Neither EAC Pain, Neither EAC Discharge Neck: Yes Supple, No Adenopathy Lungs: Yes Good Air Exchange, No Wheezes, No Ronchi, No Stridor, No Cough, No Labored Respirations, No Retractions, No Use of Accessory Muscles, No Other Abnormal Lung Sounds Heart: Yes Regular, No Murmur Abdomen: Yes Normal Bowel Sounds, No Tenderness, No Peritoneal Signs Skin: No Rash, No Edema Neurologic: Alert and oriented, no deficits. Musculoskeletal: Unremarkable. ED Course Vital Signs 09/24/18 07:58 Temperature 97.9 F Pulse Rate 98 H Respiratory 18 Rate Blood Pressure 119/85 O2 Sat by Pulse 100 Oximetry ED Medical Decision Making - Medical Decision Making Patient examined by me and stable. Has medical history of asthma, migraines, seasonal allergies, and anxieties. No distress noted. Vitals normal. Symptoms are susceptible of allergic rhinitis. Patient currently taken steroids and loratadine. Instructed to stop loratadine and starts Singulair and Flonase. Referral to risk professional for continued care. Discharged home stable. Return to work tomorrow. Follow up with Primary Care Provider in 2-3 days. He will return to the emergency room if he does not get better as discussed. Critical care attestation.: If time is entered above; I have spent that time in minutes in the direct care of this critically ill patient, excluding procedure time. ED Disposition Clinical Impression: Rhinorrhea Allergic rhinitis Qualifiers: Allergic rhinitis trigger: pollen Allergic rhinitis seasonality: seasonal Qualified Code(s): J30.1 - Allergic rhinitis due to pollen Disposition: DC-01 TO HOME OR SELFCARE Is pt being admited?: No Does the pt Need Aspirin: No Condition: Stable Instructions: Allergic Rhinitis (ED) Additional Instructions: Follow-up with the risk professional from referrals below. Prescriptions: Fluticasone [Flonase] 1 spray NS QDAY #1 bottle Montelukast [Singulair] 10 mg PO QPM #30 tablet Referrals: SHERMAN PADILLA NP-C [Primary Care Provider] - 3-5 Days [facility] [Provider Group] - 3-5 Days [facility] [Provider Group] - 3-5 Days Forms: Work/School Release Form(ED) Time of Disposition: 09:43
== END 2018-09-24 09:52 | disposition home or self-care (01) ==
LOC: ED 07:43
DX: J30.9 Allergic rhinitis, unspecified (principal); F41.9 Anxiety disorder, unspecified; Z88.6 Allergy status to analgesic agent

== ENCOUNTER 2018-12-03 12:04 | Emergency (ER) | payer MEDICAID, OTHER ==
--- NOTE | 2018-12-03 12:43 | Emergency Department Report ---
Blank Doc - Documentation Documentation: reports nausea, vomitting and [place]. Blurred vision. Stomach cramps. H/o migraine. No medication. Started last night and feels like she has a virus. Stomach pain started yesterday after eating sub sandwich . Having diarrhea. Unable to tolerate po Seen by Neurologist in past and had CT for migraine Labs, ivf meds Will be seen and treated PT stable
[2018-12-03] MEDS ORDERED: ALUM-MAG HYDROX-SIMETH 200-200-20MG/5ML PO ONE (12:44)
[2018-12-03] MEDS ORDERED: NACL 0.9% 1000 ML 1,000 ML IV ONE (12:44)
[2018-12-03] MEDS ORDERED: BENTYL PO ONE (12:44)
[2018-12-03] MEDS ORDERED: LIDOCAINE VISCOUS 2% PO ONE (12:44)
[2018-12-03 13:19] LABS: Basophils % (Auto) 1.2 % (0.0-1.8); Eosinophils # (Auto) 0.1 K/mm3 (0.0-0.4); Eosinophils % (Auto) 2.6 % (0.0-4.3); Hematocrit 34.5 % (30.3-42.9); Hemoglobin 11.4 gm/dl (10.1-14.3); Lymphocytes # (Auto) 1.8 K/mm3 (1.2-5.4); Mean Corpuscular HGB Conc 33 % (30-34); Mean Corpuscular Volume 81 fl (79-97); Monocytes # (Auto) 0.5 K/mm3 (0.0-0.8); Monocytes % (Auto) 13.5 % (0.0-7.3); Platelet Count 312 K/mm3 (140-440); Red Blood Count 4.27 M/mm3 (3.65-5.03); Red Cell Distribution Width 16.6 % (13.2-15.2)
[2018-12-03 14:02] LABS: BUN/Creatinine Ratio 24; Blood Urea Nitrogen 12 mg/dL (7-17); Hemolysis Index 3
[2018-12-03 14:04] LABS: Bacteria,Urine 1+ /HPF (Negative); Bilirubin,Urine NEG (Negative); Blood,Urine MOD (Negative); Color,Urine Yellow (Yellow); Mucus,Urine FEW /HPF; Protein,Urine <15 mg/dL mg/dL (Negative); Urobilinogen,Urine < 2.0 mg/dL (<2.0)
[2018-12-03] MEDS ORDERED: ZOFRAN ODT PO ONE (14:32)
--- NOTE | 2018-12-03 14:53 | Emergency Department Report ---
HPI - General Chief Complaint: Nausea/Vomiting/Diarrhea Time Seen by Provider: 12/03/18 12:39 - HPI HPI: 38-year-old female presents to the emergency department with a complaint of some nausea, vomiting and diarrhea that has been going on since yesterday evening around 5 PM. Due to these symptoms, the patient also has developed a headache that she says is consistent with her previous migraines. She denies any fever, vision change, slurred speech or any neurological deficits. Patient denies any significant abdominal pain but says that all of these symptoms together feels like "when I last had food poisoning." No recent travel or sick contacts at home. She has not taken anything for her symptoms prior to arrival today. Her PCP is Sherman [place]. ED Past Medical Hx - Past Medical History Hx Headaches / Migraines: Yes Hx Psychiatric Treatment: Yes (ANXIETY) Hx Asthma: Yes Additional medical history: allergies - Surgical History Past Surgical History?: No - Social History Smoking Status: Never Smoker Substance Use Type: Alcohol - Medications Home Medications: Home Medications Medication Instructions Recorded Confirmed Last Taken Type ALBUTEROL Inhaler (OR & NICU) 2 puff IH QID PRN 04/15/16 09/05/16 04/14/16 14:00 History [Proair] PARoxetine [Paxil] 40 mg PO DAILY 04/15/16 09/05/16 1 Day Ago History ~09/04/16 Loratadine 10 mg PO DAILY #30 tablet 08/20/16 09/05/16 Unknown Rx Albuterol 0.63% NEBS 0.83 mg IH BID 09/05/16 09/05/16 Unknown History Permethrin 5% [Acticin 5% CREAM] 1 applicatio TP ONCE #1 tube 02/07/17 Unknown Rx Triamcinolone 0.1% [Kenalog 0.1% 1 applic TP TID 7 Days tube 02/07/17 Unknown Rx CREAM] hydrOXYzine PAMOATE [Vistaril] 25 mg PO Q6HR PRN #12 capsule 02/07/17 Unknown Rx Acetaminophen [Acetaminophen TAB] 500 mg PO Q6HR PRN #30 tablet 03/15/17 Unknown Rx Cephalexin [Keflex] 500 mg PO BID #14 capsule 03/15/17 Unknown Rx Sulfamethoxazole/Trimethoprim 1 each PO BID #14 tablet 10/15/17 Unknown Rx [Bactrim DS TAB] Acetaminophen/Codeine [Tylenol 1 tab PO Q6H PRN #20 tab 08/25/17 Unknown Rx /Codeine # 3 tab] Sulfamethoxazole/Trimethoprim 1 each PO BID 10 Days #20 tablet 08/25/17 Unknown Rx [Bactrim Ds Tablet] Amoxicillin/Potassium Clav 1 each PO BID #20 tablet 03/24/18 Unknown Rx [Augmentin 875-125 Tablet] Fluticasone [Flonase] 1 spray NS QDAY #1 bottle 03/24/18 Unknown Rx HYDROcodone/APAP 5-325 [[place] 1 each PO Q4HR PRN #12 tablet 03/24/18 Unknown Rx 5/325] predniSONE [Deltasone] 20 mg PO QDAY #5 tab 03/24/18 Unknown Rx Fluticasone [Flonase] 1 spray NS QDAY #1 bottle 09/24/18 Unknown Rx Montelukast [Singulair] 10 mg PO QPM #30 tablet 09/24/18 Unknown Rx Ondansetron [Zofran Odt] 4 mg PO Q8HR PRN #12 tab.rapdis 12/03/18 Unknown Rx ED Review of Systems ROS: Stated complaint: VOMITING/STOMACH CRAMPS/FATIGUE Other details as noted in HPI Comment: All other systems reviewed and negative Constitutional: denies: chills, fever Eyes: denies: eye pain, vision change ENT: denies: ear pain, throat pain Respiratory: denies: cough, shortness of breath Cardiovascular: denies: chest pain, palpitations Gastrointestinal: nausea, vomiting, diarrhea Genitourinary: denies: dysuria, discharge Musculoskeletal: denies: back pain, arthralgia Skin: denies: rash, lesions Neurological: headache. denies: weakness, numbness Physical Exam - Physical Exam Vital Signs: Vital Signs 12/03/18 12:39 Temperature 97 F L Pulse Rate 88 Respiratory 18 Rate Blood Pressure 118/82 O2 Sat by Pulse 100 Oximetry Physical Exam: GENERAL: The patient is well-developed well-nourished. HENT: Normocephalic. Atraumatic. Patient has moist mucous membranes. EYES: Extraocular motions are intact. Pupils equal reactive to light bilaterally. NECK: Supple. Trachea is midline. CHEST/LUNGS: Clear to auscultation. There is no respiratory distress noted. HEART/CARDIOVASCULAR: Regular. There is no tachycardia. There is no murmur. ABDOMEN: Abdomen is soft, nontender. Patient has hyperactive bowel sounds. There is no abdominal distention. SKIN: Skin is warm and dry. NEURO: The patient is awake, alert, and oriented. The patient is cooperative. The patient has no focal neurologic deficits. The patient has normal speech. Cranial nerves II through XII grossly intact. MUSCULOSKELETAL: There is no tenderness or deformity. There is no evidence of acute injury. ED Course Vital Signs 12/03/18 12:39 Temperature 97 F L Pulse Rate 88 Respiratory 18 Rate Blood Pressure 118/82 O2 Sat by Pulse 100 Oximetry ED Medical Decision Making - Lab Data Result diagrams: 12/03/18 13:09 12/03/18 13:09 - Medical Decision Making This patient presents with a complaint of some nausea, vomiting and diarrhea since yesterday afternoon. She also has a mild headache but says it is consistent with her previous migraines. There is no focal, motor or sensory deficits in her cranial nerves are intact. Vital signs stable throughout her ED course including being afebrile. Labs have been unremarkable. The patient is not . Patient was given a Zofran ODT for the nausea and she is able to pass an oral challenge. Patient says that she is feeling better and asking for discharge home. She has good outpatient follow-up with a primary care physician/provider. She will return to the ER with any worsening of her symptoms or any acute distress. - Differential Diagnosis viral gastroenteritis, food poisoning, colitis, gastritis Critical Care Time: No Critical care attestation.: If time is entered above; I have spent that time in minutes in the direct care of this critically ill patient, excluding procedure time. ED Disposition Clinical Impression: Nausea and vomiting Qualifiers: Vomiting type: unspecified Vomiting Intractability: non-intractable Qualified Code(s): R11.2 - Nausea with vomiting, unspecified Diarrhea Qualifiers: Diarrhea type: unspecified type Qualified Code(s): R19.7 - Diarrhea, unspecified Migraine headache Qualifiers: Migraine type: unspecified Status migrainosus presence: without status migrainosus Intractability: not intractable Qualified Code(s): G43.909 - Migrai ne, unspecified, not intractable, without status migrainosus Disposition: TO HOME OR SELFCARE Is pt being admited?: No Condition: Stable Instructions: Migraine Headache (ED), Acute Nausea and Vomiting (ED), Acute Diarrhea (ED) Additional Instructions: Please follow-up with your primary care physician in the next few days. Return to the emergency Department with any worsening of your symptoms or any acute distress. Prescriptions: Ondansetron [Zofran Odt] 4 mg PO Q8HR PRN #12 tab.rapdis PRN Reason: Nausea Referrals: SHERMAN PADILLA NP-C [Referring] - 2-3 Days Forms: Work/School Release Form(ED) Time of Disposition: 14:58
[2018-12-03 15:26] VITALS: BP 120/80
== END 2018-12-03 15:18 | disposition home or self-care (01) ==
LOC: ED 12:04
DX: G43.909 Migraine, unspecified, not intractable, without status migrainosus (principal); R19.7 Diarrhea, unspecified; R11.2 Nausea with vomiting, unspecified; J45.909 Unspecified asthma, uncomplicated
CPT/HCPCS: 36415; 80048; 81001; 84702; 85025; 99283; Q0162

== ENCOUNTER 2020-04-14 09:25 | Emergency (ER) | payer MEDICAID ==
[2020-04-14 09:38] VITALS: BP 125/81
--- NOTE | 2020-04-14 10:38 | Emergency Department Report ---
Chief Complaint: Animal Bite Stated Complaint: INSECT BITE Time Seen by Provider: 04/14/20 10:36 - HPI History of Present Illness: The patient was evaluated in the emergency department for symptoms described in the history of present illness. He/she was evaluated in the context of the global COVID-19 pandemic, which necessitated consideration that the patient might be at risk for infection with the virus that causes COVID-19. Institutional protocols and algorithms that pertain to the evaluation of patients at risk for COVID-19 are in a state of rapid change based on information released by regulatory bodies including the CDC and federal and state organizations. These policies and algorithms were followed during the patient's care in the emergency department. Please note that these policies, procedures and recommendations changed on a rapid basis. 39-year-old -[place] female presents to the emergency room complaining of pain in between this wall and middle toe of the left foot. Patient says that she had gotten bitten by a blood she thinks is a black ant. She reports that she has been soaking in warm water which has made it worse tried [id number] A&E ointment which made it worse. Patient comes in to be evaluated. - Exam Vital Signs: Vital Signs 04/14/20 09:31 Temperature 98.0 F Pulse Rate 98 H Respiratory 18 Rate Blood Pressure 125/81 O2 Sat by Pulse 97 Oximetry Physical Exam: Gen: alert oriented NAD Cardic: regular rate and rhythm no murmurs appreciated Resp: Clear to auscultation bilateral no wheezing no rales or rhonchi. Skin. Left foot in between toes third and fourth toes there is a blisterlike area that is tender to touch minimally erythematous. Ambulatory without difficulties. MSE screening note: Focused history and physical exam performed. Due to findings the following was ordered: 39-year-old -[place] female presents to the emergency room complaining of pain in between this wall and middle toe of the left foot. Patient says that she had gotten bitten by a blood she thinks is a black ant. She reports that she has been soaking in warm water which has made it worse tried ov [id number] A&E ointment which made it worse. Patient comes in to be evaluated. Recommend triple antibiotic acetaminophen cool foot soaks and to follow-up with her primary care provider if no improvement. ED Disposition for MSE Clinical Impression: Insect bite Disposition: DC- TO HOME OR SELFCARE Is pt being admited?: No Does the pt Need Aspirin: No Condition: Stable Additional Instructions: Tylenol for pain management, triple antibiotics cool foot soaks. Follow-up with your primary care provider for any further concerns. Referrals: PRIMARY CARE, [Primary Care Provider] - 3-5 Days Natalie Stokes [Other] - 3-5 Days Forms: Work/School Release Form(ED)
== END 2020-04-14 10:53 | disposition home or self-care (01) ==
LOC: ED 09:25
DX: S91.352A Open bite, left foot, initial encounter (principal); Z88.6 Allergy status to analgesic agent; W64.XXXA Exposure to other animate mechanical forces, initial encounter; Y93.89 Activity, other specified; Y92.89 Other specified places as the place of occurrence of the external cause; Y99.8 Other external cause status
CPT/HCPCS: 99282

== ENCOUNTER 2022-01-21 09:40 | Emergency (ER) | payer MEDICAID ==
[2022-01-21 10:27] VITALS: BP 107/77
[2022-01-21] MEDS ORDERED: HYDROcodone/ACETAMINOPHEN 5-325 MG TAB PO ONE (11:00)
--- NOTE | 2022-01-21 11:01 | Emergency Department Report ---
ED General Adult HPI - General Chief complaint: Headache Stated complaint: MIGRAINES/SINUS PAIN Time Seen by Provider: 01/21/22 10:25 Source: patient Mode of arrival: Ambulatory Limitations: No Limitations - History of Present Illness Initial comments: 41-year-old female with no significant past medical history reports to the ER with complaints of a headache with sinus pressure and pain for about 4-6 days. Patient reports taking Tylenol and allergy medication with no relief. Patient reports nasal drainage that is clear. No cough reported. No dizziness. No other acute symptoms reported no neurological concerns reported. Severity scale (0 -10): 10 - Related Data Home Medications Medication Instructions Recorded Confirmed Last Taken Albuterol Mdi (or & Nicu Only) 2 puff IH QID PRN 04/15/16 09/05/16 04/14/16 14:00 [Proair] PARoxetine [Paxil] 40 mg PO DAILY 04/15/16 09/05/16 1 Day Ago ~09/04/16 Albuterol 0.63% NEBS 0.83 mg IH BID 09/05/16 09/05/16 Unknown Previous Rx's Medication Instructions Recorded Last Taken Type Loratadine 10 mg PO DAILY #30 tablet 08/20/16 Unknown Rx Permethrin 5% [Acticin 5% CREAM] 1 applicatio TP ONCE #1 tube 02/07/17 Unknown Rx Triamcinolone 0.1% [Kenalog 0.1% 1 applic TP TID 7 Days tube 02/07/17 Unknown Rx CREAM] hydrOXYzine PAMOATE [Vistaril] 25 mg PO Q6HR PRN #12 capsule 02/07/17 Unknown Rx Acetaminophen [Acetaminophen TAB] 500 mg PO Q6HR PRN #30 tablet 03/15/17 Unknown Rx Sulfamethoxazole/Trimethoprim 1 each PO BID #14 tablet 03/15/17 Unknown Rx [Bactrim DS TAB] cephALEXin [Keflex] 500 mg PO BID #14 capsule 03/15/17 Unknown Rx Acetaminophen/Codeine [Tylenol 1 tab PO Q6H PRN #20 tab 08/25/17 Unknown Rx /Codeine # 3 tab] Sulfamethoxazole/Trimethoprim 1 each PO BID 10 Days #20 tablet 08/25/17 Unknown Rx [Bactrim Ds Tablet] Amoxicillin/Potassium Clav 1 each PO BID #20 tablet 03/24/18 Unknown Rx [Augmentin 875-125 Tablet] Fluticasone [Flonase] 1 spray NS QDAY #1 bottle 03/24/18 Unknown Rx HYDROcodone/APAP 5-325 [[place] 1 each PO Q4HR PRN #12 tablet 03/24/18 Unknown Rx 5/325] predniSONE [Deltasone] 20 mg PO QDAY #5 tab 03/24/18 Unknown Rx Fluticasone [Flonase] 1 spray NS QDAY #1 bottle 09/24/18 Unknown Rx Montelukast [Singulair] 10 mg PO QPM #30 tablet 09/24/18 Unknown Rx Ondansetron [Zofran Odt] 4 mg PO Q8HR PRN #12 tab.rapdis 12/03/18 Unknown Rx Amoxicillin/K Clav Tab [Augmentin 1 tab PO Q12HR 7 Days #14 tab 01/21/22 Unknown Rx 875 mg] traMADoL [Ultram 50 MG tab] 50 mg PO Q6HR PRN 2 Days #8 tablet 01/21/22 Unknown Rx Allergies Allergy/AdvReac Type Severity Reaction Status Date / Time NSAIDS (Non-Steroidal AdvReac Swelling Verified 12/03/18 12:46 Anti-Inflamma ED Review of Systems ROS: Stated complaint: MIGRAINES/SINUS PAIN Other details as noted in HPI Comment: All other systems reviewed and negative ENT: congestion, other (Frontal and maxillary sinus pressure and pain) Neurological: headache ED Past Medical Hx - Past Medical History Previous Medical History?: Yes Hx Headaches / Migraines: Yes Hx Psychiatric Treatment: Yes (ANXIETY) Hx Asthma: Yes Additional medical history: allergies - Social History Smoking Status: Current Every Day Smoker - Medications Home Medications: Home Medications Medication Instructions Recorded Confirmed Last Taken Type Albuterol Mdi (or & Nicu Only) 2 puff IH QID PRN 04/15/16 09/05/16 04/14/16 14:00 History [Proair] PARoxetine [Paxil] 40 mg PO DAILY 04/15/16 09/05/16 1 Day Ago History ~09/04/16 Loratadine 10 mg PO DAILY #30 tablet 08/20/16 09/05/16 Unknown Rx Albuterol 0.63% NEBS 0.83 mg IH BID 09/05/16 09/05/16 Unknown History Permethrin 5% [Acticin 5% CREAM] 1 applicatio TP ONCE #1 tube 02/07/17 Unknown Rx Triamcinolone 0.1% [Kenalog 0.1% 1 applic TP TID 7 Days tube 02/07/17 Unknown Rx CREAM] hydrOXYzine PAMOATE [Vistaril] 25 mg PO Q6HR PRN #12 capsule 02/07/17 Unknown Rx Acetaminophen [Acetaminophen TAB] 500 mg PO Q6HR PRN #30 tablet 03/15/17 Unknown Rx Sulfamethoxazole/Trimethoprim 1 each PO BID #14 tablet 03/15/17 Unknown Rx [Bactrim DS TAB] cephALEXin [Keflex] 500 mg PO BID #14 capsule 03/15/17 Unknown Rx Acetaminophen/Codeine [Tylenol 1 tab PO Q6H PRN #20 tab 08/25/17 Unknown Rx /Codeine # 3 tab] Sulfamethoxazole/Trimethoprim 1 each PO BID 10 Days #20 tablet 08/25/17 Unknown Rx [Bactrim Ds Tablet] Amoxicillin/Potassium Clav 1 each PO BID #20 tablet 03/24/18 Unknown Rx [Augmentin 875-125 Tablet] Fluticasone [Flonase] 1 spray NS QDAY #1 bottle 03/24/18 Unknown Rx HYDROcodone/APAP 5-325 [[place] 1 each PO Q4HR PRN #12 tablet 03/24/18 Unknown Rx 5/325] predniSONE [Deltasone] 20 mg PO QDAY #5 tab 03/24/18 Unknown Rx Fluticasone [Flonase] 1 spray NS QDAY #1 bottle 09/24/18 Unknown Rx Montelukast [Singulair] 10 mg PO QPM #30 tablet 09/24/18 Unknown Rx Ondansetron [Zofran Odt] 4 mg PO Q8HR PRN #12 tab.rapdis 12/03/18 Unknown Rx Amoxicillin/K Clav Tab [Augmentin 1 tab PO Q12HR 7 Days #14 tab 01/21/22 Unknown Rx 875 mg] traMADoL [Ultram 50 MG tab] 50 mg PO Q6HR PRN 2 Days #8 tablet 01/21/22 Unknown Rx ED Physical Exam - General Limitations: No Limitations General appearance: alert, in no apparent distress - Head Head exam: Present: atraumatic, normocephalic - Eye Eye exam: Present: normal appearance - ENT ENT exam: Present: mucous membranes moist, other (Pressure and tenderness noted in the maxilla and frontal sinus areas.) - Neck Neck exam: Present: normal inspection - Respiratory Respiratory exam: Present: normal lung sounds bilaterally. Absent: respiratory distress - Cardiovascular Cardiovascular Exam: Present: regular rate, normal rhythm. Absent: systolic m urmur, diastolic murmur, rubs, gallop - GI/Abdominal GI/Abdominal exam: Present: soft, normal bowel sounds - Extremities Exam Extremities exam: Present: normal inspection - Back Exam Back exam: Present: normal inspection - Neurological Exam Neurological exam: Present: alert, oriented X3 - Psychiatric Psychiatric exam: Present: normal affect, normal mood - Skin Skin exam: Present: warm, dry, intact, normal color. Absent: rash ED Course Vital Signs 01/21/22 01/21/22 10:24 12:02 Temperature 97.9 F Pulse Rate 80 Respiratory 14 16 Rate Blood Pressure 107/77 [Right] O2 Sat by Pulse 100 Oximetry ED Medical Decision Making - Medical Decision Making 41-year-old female with past medical history of sinus problems reports to the ER with complaints of headache with sinus pressure and pain with congestion for 4 to 6 days with no relief of [id number] medication. On physical exam patient has frontal and maxillary sinus pressure and tenderness noted. No other acute signs and symptoms noted on physical exam. Patient to be started on Augmentin for acute sinusitis. Patient was given pain medicine while here in the ER for her headache. Patient informed to take her antibiotics for 7 days and take all antibiotics. Patient informed to take [id number] medication to help with her pain of her headache. Patient agrees with plan of care and verbalized understanding. Patient safe for discharge home. Patient informed if symptoms are to get worse to report back to the ER. Vital Signs 01/21/22 01/21/22 10:24 12:02 Temperature 97.9 F Pulse Rate 80 Respiratory 14 16 Rate Blood Pressure 107/77 [Right] O2 Sat by Pulse 100 Oximetry Critical care attestation.: If time is entered above; I have spent that time in minutes in the direct care o f this critically ill patient, excluding procedure time. ED Disposition Clinical Impression: Acute sinusitis Qualifiers: Sinusitis location: other Recurrence: recurrent Qualified Code(s): J01.81 - Other acute recurrent sinusitis Disposition: HOME / SELF CARE / HOMELESS Is pt being admited?: No Condition: Stable Instructions: Sinusitis, Adult, [id number] Prescriptions: Amoxicillin/K Clav Tab [Augmentin 875 mg] 1 tab PO Q12HR 7 Days #14 tab traMADoL [Ultram 50 MG tab] 50 mg PO Q6HR PRN 2 Days #8 tablet PRN Reason: Pain Forms: Work/School Release Form(ED)
== END 2022-01-21 14:30 | disposition home or self-care (01) ==
LOC: ED 09:40
DX: J01.81 Other acute recurrent sinusitis (principal); F17.200 Nicotine dependence, unspecified, uncomplicated; J45.909 Unspecified asthma, uncomplicated
CPT/HCPCS: 99282